=== PATIENT | female | born 1955 | race African-American/Black ===

== ENCOUNTER 2023-05-28 06:12 | Day surgery (SDC) | payer OTHER ==
[2023-05-24 13:39] VITALS: BMI 22.9
[2023-05-28] MEDS ORDERED: LIDOCAINE HCL 2% (20ML MULTI-DOSE VIAL) ONE (07:24)
[2023-05-28] MEDS ORDERED: BUPIVACAINE HCL/PF 0.5% (5MG/ML) 10 ML VIAL ONE (07:25)
[2023-05-28] MEDS ORDERED: PROPOFOL 20 ML ONE ×2 (07:45→08:08)
[2023-05-28] MEDS ORDERED: MIDAZOLAM HCL 2 MG/2 ML SINGLE DOSE VIAL ONE (07:45)
[2023-05-28] MEDS ORDERED: SODIUM CHLORIDE 0.9% P/F 10 ML VIAL IJ ONE (07:46)
[2023-05-28] MEDS ORDERED: ceFAZolin SODIUM 1 GM VIAL ONE (07:46)
[2023-05-28] MEDS ORDERED: LIDOCAINE HCL/PF 2% SDV 5ML VIAL ONE (07:46)
[2023-05-28] MEDS ORDERED: KETOROLAC TROMETHAMINE 30 MG/1 ML VIAL ONE (09:23)
[2023-05-28 09:43] VITALS: RESP 18; TEMP 97.3
[2023-05-28 10:25] VITALS: BP 140/78; PULSE 72
== END 2023-05-28 10:25 | disposition home or self-care (01) ==
LOC: FASU 06:12
PROVIDERS: ATTEND Podiatrist Foot Surgery
PROC: 0QBP0ZZ Excision of Left Metatarsal, Open Approach (ICD-10-PCS; principal; 2023-05-28 08:18)
PROC: 0SRQ0JZ Replacement of Left Toe Phalangeal Joint with Synthetic Substitute, Open Approach (ICD-10-PCS; 2023-05-28 08:18)
DX: M21.612 Bunion of left foot (principal); M20.42 Other hammer toe(s) (acquired), left foot
CPT/HCPCS: 28285; 28299; C1713; 73630-TC-LT; 88305-TC; 88311-TC